=== PATIENT | male | born 1925 | race Caucasian/White ===

== ENCOUNTER 2016-05-01 12:46 | Emergency (ER) | payer MEDICARE ==
[~2016-05-01] VITALS: Ht 177.8 cm; Wt 83.9 kg
[2016-05-01 13:49] LABS: INR 1.97 (0.87-1.13); PROTHROMBIN TIME 20.7 SECS (9.5-12.7)
[2016-05-01] MEDS ORDERED: TDAP [DIPH/PERTUSSIS/TET] 0.5 ML VIAL IM ONE ×2 (14:00→14:05)
[2016-05-01 14:26] VITALS: BP 133/97
== END 2016-05-01 14:27 | disposition home or self-care (01) ==
LOC: EDSEX 12:48 → ER 12:48
DX: S91.311A Laceration without foreign body, right foot, initial encounter (principal); I10 Essential (primary) hypertension; R79.1 Abnormal coagulation profile; Z95.0 Presence of cardiac pacemaker; Z88.0 Allergy status to penicillin; W20.8XXA Other cause of strike by thrown, projected or falling object, initial encounter; Y93.89 Activity, other specified; Y92.89 Other specified places as the place of occurrence of the external cause; Y99.8 Other external cause status
CPT/HCPCS: 12001; 36415; 85610; 90471; 90715; 99283; A4606; A6402 ×2; A6403; Z7610